=== PATIENT | female | born 1980 | race Two or more races ===

== ENCOUNTER 2017-12-06 02:51 | Emergency (ER) | payer OTHER ==
[~2017-12-06] VITALS: Ht 160 cm; Wt 74.4 kg
[~2017-12-06 02:51] MED LIST: CIPRO500 MG PO; PYRIDIUM200 MG PO; ZANTAC300 MG PO
[2017-12-06] MEDS ORDERED: KETO10TA2 PO (07:15)
[2017-12-06] MEDS ORDERED: BACTRIM DS TAB1 EACH PO (07:15)
== END 2017-12-06 08:06 | disposition home or self-care (01) ==
LOC: ER 02:51
DX: N39.0 Urinary tract infection, site not specified (principal); R10.32 Left lower quadrant pain

== ENCOUNTER 2024-05-14 08:49 | Emergency (ER) | payer OTHER ==
[~2024-05-14] VITALS: Ht 160 cm; Wt 78.9 kg
[~2024-05-14 08:49] MED LIST changes: +BACTRIM DS TAB1 EACH PO; +DICLOFENAC POTA50 MG PO; +INTEGRA PLUS C1 EACH; +KETO10TA2 PO
[2024-05-14] MEDS ORDERED: 0.9 % SODIUM CHLORIDE 1,000 ML IV SCH (10:15)
[2024-05-14] MEDS ORDERED: FAMOTIDINE/PF 20 MG/2 ML VIAL IV PUSH ONE (10:15)
[2024-05-14] MEDS ORDERED: ONDANSETRON HCL 2 MG/ML VIAL IV ONE (10:15)
[2024-05-14 10:37] LABS: HEMATOCRIT 41.1 % (36.0-45.00); MEAN CELL VOLUME 84.6 fL (80.00-100.00); MEAN CORPUSCULAR HEMOGLOBIN 28.9 pg (27.00-32.0); MEAN CORPUSCULAR HGB CONC 34.1 g/dl (32.0-36.0); PLATELET COUNT 270 K/uL (150-450); RED BLOOD COUNT 4.86 M/uL (4.00-6.00); RED CELL DISTRIBUTION WIDTH 13.1 % (11.5-14.5)
[2024-05-14 10:59] LABS: ALBUMIN 3.8 gm/dL (3.4-5.0); BILIRUBIN TOTAL 1.52 mg/dL (0.3-1.2); CALCIUM 8.9 mg/dL (8.5-10.1); CREATININE SERUM 0.65 mg/dL (0.55-1.02); GFR 99.48; GLOBULINA 4.5 G/DL (2.4-3.5); POTASSIUM 3.26 mEq/L (3.5-5.1); TOTAL PROTEIN 8.3 gm/dL (6.4-8.2)
[2024-05-14 12:21] LABS: PH,URINE 5.5 (5.0-8.0); URINE APPEARANCE Clear; URINE BILIRRUBIN Small (NEGATIVE); URINE BLOOD Negative; URINE COLOR Dark Yellow; URINE GLUCOSE Negative (NEGATIVE); URINE LEUKOCYTE Trace; URINE NITRATE Negative; URINE PROTEIN 30 (NEGATIVE)
[2024-05-14 12:24] LABS: URINE BACTERIA 1177.3 uL (0.0-1933); URINE EPITHELIAL CELLS 113.5 uL (0.0-38.8); URINE RBC 6.1 uL (0.0-20.8); URINE WBC 42.5 uL (0.0-23.2)
[2024-05-14 13:05] LABS: URINE KETONE >=160 (NEGATIVE)
[2024-05-14 18:35] LABS: BILIRUBIN TOTAL 1.12 mg/dL (0.3-1.2); BILIRUBIN,CONJUGATED 0.4 mg/dL (0.0-0.2); BILIRUBIN,UNCONJUGATED 0.72 mg/dL (0.0-0.6)
[2024-05-14] MEDS ORDERED: KETOROLAC TROMETHAMINE 15 MG VIAL IU ONE (18:45)
[2024-05-14] MEDS ORDERED: POTASSIUM CHLORIDE/NACL 0.9% 1,000 ML IV ONE (18:45)
[2024-05-14] MEDS ORDERED: PEPCID AC20 MG PO (19:27)
[2024-05-14] MEDS ORDERED: ZOFRAN8 MG PO (19:27)
[2024-05-15] MEDS ORDERED: GILTUSS COUGH-118 M1 PO (20:27)
[2024-05-15] MEDS ORDERED: ACETAMINOPHEN500 M1 PO (20:27)
[2024-05-15] MEDS ORDERED: ZITHROMAX TRI-500 MG PO (20:27)
== END 2024-05-14 19:51 | disposition home or self-care (01) ==
LOC: ER 08:51
PROVIDERS: Emergency Medicine; General Practice
DX: B34.9 Viral infection, unspecified (principal); K82.4 Cholesterolosis of gallbladder; R10.13 Epigastric pain; Z20.822 Contact with and (suspected) exposure to COVID-19

== ENCOUNTER 2024-05-15 16:52 | Emergency (ER) | payer OTHER ==
[~2024-05-15] VITALS: Ht 160 cm; Wt 90.7 kg
[~2024-05-15 16:52] MED LIST changes: +PEPCID AC20 MG PO; +ZOFRAN8 MG PO
[2024-05-15] MEDS ORDERED: GUAIFEN/DEXTROMETHORPHAN/PE 10 ML BLIST.PACK PO ONE ×2 (17:45→18:03)
[2024-05-15] MEDS ORDERED: IPRATROPIUM/ALBUTEROL SULFATE 3 ML AMPUL.NEB IH ONE ×2 (17:45→18:54)
[2024-05-15] MEDS ORDERED: ZITHROMAX TRI-500 MG PO (20:27)
[2024-05-15] MEDS ORDERED: ACETAMINOPHEN500 M1 PO (20:27)
[2024-05-15] MEDS ORDERED: GILTUSS COUGH-118 M1 PO (20:27)
== END 2024-05-15 20:45 | disposition home or self-care (01) ==
LOC: ER 16:55
DX: J06.9 Acute upper respiratory infection, unspecified (principal); D50.8 Other iron deficiency anemias